=== PATIENT | female | born 1960 | race Caucasian/White ===

== ENCOUNTER → 2019-04-01 | Outpatient (CLI) | payer MEDICARE, MEDICAID ==
[2015-06-03 16:04] VITALS: BP 138/71
[~2019-04-01] MED LIST: AMOX1TAB58 PO; PRED20TA PO
--- NOTE | 2019-04-01 14:54 | RAD ---
EXAM: Right knee, 2 views. HISTORY: Arthritis. COMPARISON: None. FINDINGS: 2 views the right knee are obtained. There is no fracture, dislocation or subluxation. There is no significant joint effusion. IMPRESSION: No acute osseous finding. Electronically signed by: Saranya Childers MD (04/01/2019 2:51 PM) [facility]
--- NOTE | 2019-04-01 14:56 | RAD ---
EXAM: Bilateral hands, 3 views. HISTORY: Arthritis. COMPARISON: None. FINDINGS: 3 views of both hands are obtained. There is moderate bilateral first carpal metacarpal joint space narrowing, subchondral sclerosis and marginal osteophytosis. There is severe left greater than right third and moderate bilateral second distal interphalangeal joint space narrowing and spurring. There is moderate left fifth distal interphalangeal joint spurring with possible slight chronic subluxation. IMPRESSION: 1. Severe left greater than right third distal interphalangeal joint, moderate bilateral second distal interphalangeal joint, and moderate left fifth distal interphalangeal joint osteoarthritis. 2. Moderate bilateral first carpal metacarpal osteoarthritis. Electronically signed by: Saranya Childers MD (04/01/2019 2:53 PM) [place] [id number]
--- NOTE | 2019-04-01 15:22 | RAD ---
EXAM: Cervical spine, 3 views. HISTORY: Arthritis. COMPARISON: None. FINDINGS: 3 views of cervical spine are obtained. There is minimal anterolisthesis of C2 on C3 and C3 on C4. There is slight disc space narrowing at C5-C6. There is suspected bone demineralization. There is no acute fracture. There is a rounded peripherally calcified lesion within the left anterior neck measuring 1.6 cm, possibly associated with the left thyroid lobe. IMPRESSION: 1. Mild degenerative change primarily at C5-C6. 2. Suspected bone demineralization. 3. 1.8 cm peripherally calcified lesion within the left anterior neck. This may be associated with the thyroid and can be better assessed with a thyroid sonogram. Electronically signed by: Saranya Childers MD (04/01/2019 3:19 PM) [facility]
--- NOTE | 2019-04-01 15:29 | RAD ---
EXAM: Pelvis, single view; bilateral feet, 2 views; bilateral shoulders, 2 views. HISTORY: Arthritis. COMPARISON: None. FINDINGS: Pelvis: A frontal view the pelvis is obtained. There is no fracture, dislocation or subluxation. There is mild degenerative change involving the visualized lumbar spine. Bilateral feet: 2 views of both feet are obtained. There is no fracture, dislocation or subluxation. There is right talonavicular joint space narrowing, spurring and subchondral sclerosis. There is left first interphalangeal joint space narrowing and slight chronic subluxation. There are small right greater than left plantar spurs. There are suspected left hammertoe deformities. Bilateral shoulders: 3 views of both shoulders are obtained. There is mild bilateral humeral head spurring. There are degenerative subchondral cysts within the left glenoid. There are multiple left shoulder joint loose bodies. There has been distal left clavicular resection. IMPRESSION: 1. No acute osseous finding. 2. Moderate right talonavicular joint osteoarthritis left first interphalangeal joint osteoarthritis, the latter which is associated with slight subluxation. 3. Small bilateral plantar spurs. 4. Mild left greater than right glenohumeral osteoarthritis and minimal left shoulder joint loose bodies. There has been distal left clavicular resection. Electronically signed by: Saranya Childers MD (04/01/2019 3:26 PM) [facility]
== END | disposition home or self-care (01) ==
LOC: RAD 14:24
PROVIDERS: ATTEND Internal Medicine Rheumatology
DX: M19.042 Primary osteoarthritis, left hand (principal); M47.892 Other spondylosis, cervical region; M76.892 Other specified enthesopathies of left lower limb, excluding foot; M76.891 Other specified enthesopathies of right lower limb, excluding foot; M24.012 Loose body in left shoulder
CPT/HCPCS: 72040; 72170; 73030; 73120; 73560; 73620

== ENCOUNTER → 2019-11-18 | Outpatient (CLI) | payer MEDICARE, MEDICAID ==
[2015-06-03 16:04] VITALS: BP 138/71
[~2019-11-18] MED LIST changes: +ALBU2.5V8 IH; +CHOL500050 PO; +HYDR200T5 PO; +OMEP20TA8 PO; +OXYC10TA PO; +PRED2.5T PO; +UMEC1DIS IH
== END | disposition home or self-care (01) ==
LOC: LAB 11:30
PROVIDERS: ATTEND Registered Nurse
DX: Z11.59 Encounter for screening for other viral diseases (principal)
CPT/HCPCS: C9803; U0003

== ENCOUNTER → 2019-11-20 | Day surgery (SDC) | payer MEDICARE, MEDICAID ==
[~2019-11-20] MED LIST changes: +IV RINGERS SOLUTION,LACTATED 1,000 ML IV SCH; +PROPOFOL 10,000 MCG/ML (20ML) VIAL IV ONE
[2019-11-20 13:43] VITALS: BP 123/68
--- NOTE | 2019-11-24 17:06 | PATHOLOGY ---
[facility] Accession Number: [id number] . 01 Material submitted: . stomach - ANTRUM BIOPSY . 01 Clinical history: . None provided . 02 Diagnosis: Gastric biopsy, antrum: - Chronic gastritis, mild to moderate. ([facility] 11/24/2019) [facility] 11/24/2019 1121 Local . 02 Comment: Sections of the gastric antral biopsy show congestion and mild to moderate chronic inflammation. A properly controlled immunohistochemical for Helicobacter is negative for Helicobacter organisms. There is no evidence of malignancy. ([facility] 11/24/2019) . Special stain performed: Immunoperoxidase for Helicobacter organisms . 02 Electronically signed: . Osito Berkowitz MD, Pathologist NPI- [id number] . 01 Gross description: . The specimen is received in formalin, labeled "Mooberry, Reny, antrum BX" and consists of a fragment of nunez tissue measuring 0.6 x 0.3 cm which is entirely submitted in A1. ([facility]; 11/23/2019) [facility]U 11/23/2019 1754 Local . 02 Pathologist provided ICD-10: K29.50 . 02 CPT . 020781, [id number] Specimen Comment: A courtesy copy of this report has been sent to [phone] Specimen Comment: [phone], Specimen Comment: Report sent to ,DR VILLAFUERTE / DR SUAZO Performed at: 01 [facility] [address], [place] [id number] MD Jimi Lomeli MD Phone: [phone] Performed at: 02 [facility] [address], [place] [id number] MD Osito Berkowitz MD Phone: [phone]
== END | disposition home or self-care (01) ==
LOC: SURG 10:38
PROVIDERS: ATTEND Internal Medicine Gastroenterology
DX: R10.13 Epigastric pain (principal); K29.50 Unspecified chronic gastritis without bleeding; K21.0 Gastro-esophageal reflux disease with esophagitis; K22.2 Esophageal obstruction; K44.9 Diaphragmatic hernia without obstruction or gangrene; E66.9 Obesity, unspecified; J44.9 Chronic obstructive pulmonary disease, unspecified; G47.33 Obstructive sleep apnea (adult) (pediatric); K92.0 Hematemesis; M19.90 Unspecified osteoarthritis, unspecified site; Z79.899 Other long term (current) drug therapy; Z98.890 Other specified postprocedural states; Z88.0 Allergy status to penicillin; Z88.8 Allergy status to other drugs, medicaments and biological substances; Z68.41 Body mass index [BMI] 40.0-44.9, adult; Z90.710 Acquired absence of both cervix and uterus; Z91.041 Radiographic dye allergy status
CPT/HCPCS: 43239; 88305; 88342; J2704; J7120; U0003-CS

== ENCOUNTER 2021-09-15 23:04 | Inpatient (IN) | payer MEDICARE, MEDICAID ==
[~2021-09-15] VITALS: Ht 157.5 cm; Wt 115.8 kg
[~2021-09-15 23:04] MED LIST changes: -IV RINGERS SOLUTION,LACTATED 1,000 ML IV SCH; -PROPOFOL 10,000 MCG/ML (20ML) VIAL IV ONE
[2021-09-15] MEDS ORDERED: IPRATRPIUM/ALBUTEROL 0.5/2.5MG 3 ML NEBU. ONE ×2 (23:13→23:17)
[2021-09-15] MEDS ORDERED: methylPREDNISolone SOD SUCC PF 125 MG/2 ML VIAL. IV ONE (23:30)
[2021-09-15] MEDS ORDERED: IPRATRPIUM/ALBUTEROL 0.5/2.5MG 3 ML NEBU. NEB ONE (23:30)
--- NOTE | 2021-09-15 23:36 | PHYS DOC ---
Past History Past Medical History: Bronchitis, Lung Disease, Other Additional Past Medical Histor: RA, ULCERS Past Surgical History: Cholecystectomy, Hysterectomy, Knee Replacement, Other Additional Past Surgical Histo: BX CARPAL TUNNEL, L KNEE, L SHOULDER, RENAL ANGIOPLASTY Alcohol Use: None Drug Use: None General Adult EDM: Chief Complaint: SHORTNESS OF BREATH HPI: HPI: 61-year-old female presents with shortness of breath and chest discomfort. The patient has been having the symptoms for least a week. She has been feeling more short of breath the last few days. She has a history of asthma borderline COPD. She is a smoker. The chest pain she describes as a burning/pulling sensation. She assumes this is related to her acid reflux disease for which she takes omeprazole and famotidine. She has decreased exercise tolerance. No formal diagnosis of COPD. She does use Anoro and Ventolin. She denies fever or chills. She had COVID-19 in June of this year. Review of Systems: Review of Systems: Constitutional: Denies fever or chills Eyes: Denies change in visual acuity HENT: Denies nasal congestion or sore throat Respiratory: shortness of breath Cardiovascular: Chest pain GI: Denies abdominal pain, nausea, vomiting, bloody stools or diarrhea : Denies dysuria Musculoskeletal: Denies back pain or joint pain Integument: Denies rash Neurologic: Denies headache, focal weakness or sensory changes Endocrine: Denies polyuria or polydipsia Lymphatic: Denies swollen glands Psychiatric: Denies depression or anxiety Current Medications: Current Meds: Current Medications Medications (Trade) Dose Ordered Sig/Wilmer Start Time Stop Time Status Last Admin Dose Admin Albuterol/ Ipratropium (Duoneb) 3 ml 1X ONCE 09/15/21 23:30 09/15/21 23:31 UNV Methylprednisolone Sodium Succinate (SOLU-Medrol 125MG VIAL) 125 mg 1X ONCE 09/15/21 23:30 09/15/21 23:31 UNV Allergies: Allergies: Allergies Coded Allergies Type Severity Reaction Last Updated Verified ceftriaxone Allergy Severe Shortness of Air 06/03/15 Yes iodine Allergy Severe Shortness of Air 06/03/15 Yes methotrexate Allergy Severe Shortness of Air 06/03/15 Yes adhesive tape Allergy Unknown PLASTIC TAPE 11/20/19 Yes Uncoded Allergies Type Severity Reaction Last Updated Verified MOST RA DRUGS Allergy Severe Shortness of Air 06/03/15 Physical Exam: PE: Constitutional: Well developed, well nourished, morbidly obese, no acute distres s, non-toxic appearance. [] HENT: Normocephalic, atraumatic, bilateral external ears normal, oropharynx [address], no oral exudates, nose normal. [] Eyes: PERRLA, EOMI, conjunctiva normal, no discharge. [] Neck: Normal range of motion, no tenderness, supple, no stridor. [] Cardiovascular: Heart rate 77, regular rhythm, no murmur [] Lungs & Thorax: Bilateral breath sounds with diffuse expiratory wheezing [] Abdomen: Bowel sounds normal, soft, no tenderness, no masses, no pulsatile masses. [] Skin: Warm, dry, no erythema, no rash. [] Back: No tenderness, no CVA tenderness. [] Extremities: No tenderness, no cyanosis, no clubbing, ROM intact, no edema. [] Neurologic: Alert and oriented X 3, normal motor function, normal sensory function, no focal deficits noted. [] Psychologic: Affect normal, judgement normal, mood normal. [] Current Patient Data: Vital Signs: Vital Signs Date Time Temp Pulse Resp B/P (MAP) Pulse Ox O2 Delivery O2 Flow Rate FiO2 09/15/21 23:24 94 Room Air 09/15/21 23:22 98.4 92 24 153/106 (122) EKG: EKG: Sinus rhythm, rate 77, leftward axis, no ST elevation or depression. [] Radiology/Procedures: Radiology/Procedures: [] Impressions: Exam Date: 09/15/2021 11:23 PM XR CHEST 1V Indication: Reason: SOB / Spl. Instructions: / History: . FINDINGS/ IMPRESSION: The cardiac silhouette and pulmonary vasculature are within normal limits. There is no focal consolidation, pleural effusion or pneumothorax. The visualized osseous structures are intact. Electronically signed by: Murtaza Sharma MD (09/16/2021 12:09 AM) [facility] DICTATED AND SIGNED BY: MURTAZA SHARMA MD DATE: 09/16/21 0008 CC: RIANA VIRGEN DO; FATMATA VILLAFUERTE ~ Heart Score: C/O Chest Pain: Yes HEART Score for Chest Pain: HEART Score for Chest Pain Response (Comments) Value History Slighlty/Non-Suspicious 0 ECG Nonspecific Repolarizatio 1 Age >45 - < 65 1 Risk Factors 1 or 2 Risk Factors 1 Troponin < Normal Limit 0 Total 3 Risk Factors: Risk Factors: DM, Current or recent (<one month) smoker, HTN, HLP, family history of CAD, obesity. Risk Scores: Score 0 - 3: 2.5% MACE over next 6 weeks - Discharge Home Score 4 - 6: 20.3% MACE over next 6 weeks - Admit for Clinical Observation Score 7 - 10: 72.7% MACE over next 6 weeks - Early Invasive Strategies Course & Med Decision Making: Course & Med Decision Making Pertinent Labs and Imaging studies reviewed. (See chart for details) Patient appears to be having a COPD exacerbation. I have treated her with DuoNeb treatments we will give her 125 Solu-Medrol. Patient's chest x-ray is negative for acute findings. EKG is negative for acute findings. Labs are unremarkable. Troponin is negative. The patient's oxygen saturation has not been consistently staying above 90%. Just talking she drops to 88. I have advised that the patient be admitted to the hospital. She has reluctantly agreed. I spoke with Dr. Turner and he has accepted the patient for admission. Dragon Disclaimer: Sherry Disclaimer: This electronic medical record was generated, in whole or in part, using a voice recognition dictation system. Departure Departure: Impression: Primary Impression: COPD exacerbation Disposition: ADMITTED INPATIENT Admitting Physician: John Turner Condition: STABLE Referrals: FATMATA VILLAFUERTE (PCP) RIANA VIRGEN DO Sep 15, 2021 23:36
[2021-09-15 23:49] LABS: BASO % 0 % (0-3); EOS # 0.2 x10^3/uL (0.0-0.7); EOS % 3 % (0-3); HEMATOCRIT 43.2 % (36.0-47.0); HEMOGLOBIN 14.4 g/dL (12.0-15.5); LYMPH # 2.2 x10^3/uL (1.0-4.8); LYMPH % 23 % (24-48); MEAN CORPUSCULAR HEMOGLOBIN 29 pg (25-35); MEAN CORPUSCULAR HGB CONC 33 g/dL (31-37); MEAN CORPUSCULAR VOLUME 88 fL (79-100); MONO # 0.9 x10^3/uL (0.0-1.1); MONO % 10 % (0-9); NEUT # 6.2 x10^3uL (1.8-7.7); NEUT % 65 % (31-73); PLATELET COUNT 269 x10^3/uL (140-400); RED BLOOD COUNT 4.91 x10^6/uL (3.50-5.40); RED CELL DISTRIBUTION WIDTH 15.1 % (11.5-14.5); WHITE BLOOD COUNT 9.5 x10^3/uL (4.0-11.0)
--- NOTE | 2021-09-15 23:49 | EKG ---
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
[2021-09-16 00:04] LABS: CALCIUM 8.9 mg/dL (8.5-10.1); CREATININE 1.2 mg/dL (0.6-1.0); GFR 45.4; POTASSIUM 4.2 mmol/L (3.5-5.1)
--- NOTE | 2021-09-16 00:11 | RAD ---
Exam Date: 09/15/2021 11:23 PM XR CHEST 1V Indication: Reason: SOB / Spl. Instructions: / History: . FINDINGS/ IMPRESSION: The cardiac silhouette and pulmonary vasculature are within normal limits. There is no focal consolidation, pleural effusion or pneumothorax. The visualized osseous structures are intact. Electronically signed by: Karthikeyan Sharma MD (09/16/2021 12:09 AM) [facility]
[2021-09-16 00:16] LABS: ALBUMIN 3.9 g/dL (3.4-5.0); ALBUMIN/GLOBULIN RATIO 1.3 (1.0-1.7); TOTAL BILIRUBIN 0.3 mg/dL (0.2-1.0)
[2021-09-16] MEDS ORDERED: ONDANSETRON PF 4 MG/2 ML VIAL. IVP PRN (00:45)
[2021-09-16 01:27] LABS: INFLUENZA A PATIENT NEGATIVE (NEGATIVE); INFLUENZA B PATIENT NEGATIVE (NEGATIVE)
[2021-09-16 02:50] VITALS: BP 132/80
[2021-09-16] MEDS ORDERED: FAMO40TA4 PO (03:16)
[2021-09-16] MEDS ORDERED: IPRATRPIUM/ALBUTEROL 0.5/2.5MG 3 ML NEBU. ONE (04:02)
[2021-09-16] MEDS: FAMOTIDINE 20 MG TABLET PO SCH ×2 (04:03→21:34)
[2021-09-16] MEDS ORDERED: ALBUTEROL SULFATE 2.5 MG/3 ML NEBU. IH PRN (05:30)
[2021-09-16] MEDS: IPRATRPIUM/ALBUTEROL 0.5/2.5MG 3 ML NEBU. NEB SCH ×4 (05:53→20:56)
[2021-09-16] MEDS: methylPREDNISolone SOD SUCC PF 40 MG/ML VIAL. IV SCH ×3 (07:19→21:33)
[2021-09-16] MEDS ORDERED: IPRATRPIUM/ALBUTEROL 0.5/2.5MG 3 ML NEBU. NEB SCH (08:00)
[2021-09-16] MEDS ORDERED: PREDNISONE 7.5 MG PO SCH (09:00)
[2021-09-16] MEDS: HYDROXYCHLOROQUINE 200 MG TABLET PO SCH ×3 (10:27→21:33)
[2021-09-16] MEDS: CHOLECALCIFEROL (VITAMIN D3) 1,000 UNIT TABLET PO SCH (10:27)
[2021-09-16] MEDS: oxyCODONE IR 5 MG TABLET PO PRN ×2 (10:27→18:37)
[2021-09-16 11:25] VITALS: BP 125/79
[2021-09-16] MEDS: PANTOPRAZOLE 40 MG TABLET. PO SCH (11:30)
--- NOTE | 2021-09-16 15:50 | HP ---
DATE OF SERVICE: 09/16/2021 ADMIT DATE: 09/16/2021 HISTORY OF PRESENT ILLNESS: The patient is a 61-year-old female patient who presented to the Emergency Room of [facility] with a complaint of worsening shortness of breath, chest discomfort. She is having had the symptoms for at least a week now. She has been feeling more short of breath for the last few days. She apparently is known to have bronchial asthma and borderline COPD. She unfortunately continues to smoke and she is also known to have morbid obesity and obstructive sleep apnea, for which she was supposed to be on CPAP, but she has not been using it and has been sleeping in her recliner. She also had severe acid reflux and hiatal hernia. She did complain of burning sensation and pain in her epigastric area that makes her feeling of sensation of shortness of breath worse. She, however, denied any fever, chills. Denied any chest pain. She has had COVID-19 in June of this year and she was extensively investigated in the Emergency Room and has had lab work and imaging studies. Her lab work showed a white cell count to be normal. Her chemistry was mostly unrevealing. Her influenza A and B were negative; however, her SARS-CoV-2 antigen rapid testing was positive. Her chest x-ray showed the cardiac silhouette and pulmonary vasculature are within normal limits. There is no focal consolidation, pleural effusion or pneumothorax. The visualized osseous structures are intact. The patient was admitted with acute COPD exacerbation. She was started on IV steroids. She did receive methylprednisolone 125 mg, received multiple treatments with albuterol and Atrovent and was continued on most of her home medication. PAST MEDICAL HISTORY: Significant for severe gastroesophageal reflux disease, hiatal hernia, multiple gastric ulcers, morbid obesity, obstructive sleep apnea, COPD, bronchial asthma, rheumatoid arthritis, ____. Has had COVID-19 in June of this year. PAST SURGICAL HISTORY: Significant for cholecystectomy, esophagogastrojejunostomy, left total knee arthroplasty, total abdominal hysterectomy, carpal tunnel release on both sides. 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 Does have also Schatzki rings dilated. ALLERGIES: SHE IS ALLERGIC TO MOST RHEUMATOID ARTHRITIS DRUGS, ADHESIVE TAPE, CEFTRIAXONE, IODINE AND METHOTREXATE. MEDICATIONS: She is currently on the following medications: She is on hydroxychloroquine sulfate 200 mg twice a day, Anoro Ellipta one inhalation once a day, albuterol sulfate 1 puff every 4 hours, oxycodone 10 mg extended release three times a day, famotidine 40 mg at bedtime, omeprazole 20 mg twice a day, prednisone 7.5 mg daily and cholecalciferol 1250 mcg once a week. FAMILY HISTORY: She has 2 brothers who are healthy. One sister of Deandra's granulomatosis and colon cancer. She has 5 other sisters who are healthy. SOCIAL HISTORY: She is , has a son and a daughter. She continued to smoke about a pack a day, does not drink alcohol or use any recreational drugs. 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 REVIEW OF SYSTEMS: As per history of present illness. PHYSICAL EXAMINATION: GENERAL: On arrival to the Emergency Room, the patient was somewhat tachypneic, but there is no pallor or jaundiced, cyanosed or thyromegaly. No jugular venous distention. No lower limb edema. VITAL SIGNS: Her heart rate was 93, blood pressure 153/106, temperature was 98.4, respiratory rate was 24 and oxygen saturation was 93% on room air. HEAD, EYES, EARS, NOSE, AND THROAT: Normocephalic, atraumatic. NECK: Supple. HEART: Normal first and second heart sounds. No gallop or murmur. CHEST: Shows central trachea, equally reduced expansion, reduced air entry, vesicular breath sounds with bilateral scattered rhonchi. I could not appreciate any crepitation. ABDOMEN: Distended, soft, nontender. NEUROLOGIC: She was grossly intact. She does have some hoarseness of voice, thought to be due to vocal cord dysfunction that she attributes to intubation for her cholecystectomy. LABORATORY WORK: On arrival to the Emergency Room showed a white cell count of 9.5, hemoglobin 14.4, hematocrit 43, MCV 88 and platelet count 269,000 with normal manual differential. Her chemistry showed a serum sodium 138, potassium 4.2, chloride 99, bicarbonate 33, anion gap of 6, BUN 11, creatinine 1.2. Estimated GFR was 45 mL per minute. Her glucose 110, calcium was 8.9. Total bilirubin, AST, ALT, alkaline phosphatase were normal. Troponin I high sensitivity was 6. Beta natriuretic peptide was 63. Total protein was 7, albumin was 3.9. Her influenza A and B were negative. Her SARS-CoV-2 antigen rapid testing was positive. Her chest x-ray showed that the patient's cardiac silhouette and pulmonary vasculature are within normal limits. There is no focal consolidation, pleural effusion or pneumothorax. The visualized osseous structures are intact. ASSESSMENT AND PLAN: In summary, this is a 61-year-old female patient who was admitted with COPD exacerbation/bronchial asthma exacerbation. She has multiple other medical problems including severe acid reflux, hiatal hernia, multiple gastric ulcers. She has also rheumatoid arthritis and has had morbid obesity and obstructive sleep apnea. She was supposed to be on CPAP, but she is not using it since last June. My plan is to continue reconcile all her medication, added nebulized albuterol and Atrovent and also methylprednisolone 40 mg 4 times a day. We will continue with her famotidine and omeprazole and monitor her on a daily basis. PAIGE/ADILIA/BRANDO DR: Arden TID: [id number]
[2021-09-16 16:00] VITALS: BP 127/61
[2021-09-16 21:45] VITALS: BP 126/74
[2021-09-17 00:23] VITALS: BP 137/86
[2021-09-17] MEDS: oxyCODONE IR 5 MG TABLET PO PRN ×4 (00:25→20:42)
[2021-09-17 04:23] VITALS: BP 131/81
[2021-09-17] MEDS: IPRATRPIUM/ALBUTEROL 0.5/2.5MG 3 ML NEBU. NEB SCH ×4 (05:39→21:25)
[2021-09-17] MEDS: methylPREDNISolone SOD SUCC PF 40 MG/ML VIAL. IV SCH ×3 (05:44→21:25)
[2021-09-17] MEDS: PANTOPRAZOLE 40 MG TABLET. PO SCH (07:30)
[2021-09-17 07:36] LABS: BASO % 0 % (0-3); EOS % 0 % (0-3); HEMATOCRIT 38.4 % (36.0-47.0); HEMOGLOBIN 12.8 g/dL (12.0-15.5); LYMPH # 0.8 x10^3/uL (1.0-4.8); LYMPH % 6 % (24-48); MEAN CORPUSCULAR HEMOGLOBIN 30 pg (25-35); MEAN CORPUSCULAR HGB CONC 33 g/dL (31-37); MEAN CORPUSCULAR VOLUME 89 fL (79-100); MONO # 0.7 x10^3/uL (0.0-1.1); MONO % 5 % (0-9); NEUT # 13.4 x10^3uL (1.8-7.7); NEUT % 89 % (31-73); PLATELET COUNT 225 x10^3/uL (140-400); RED BLOOD COUNT 4.33 x10^6/uL (3.50-5.40); RED CELL DISTRIBUTION WIDTH 14.9 % (11.5-14.5)
[2021-09-17] MEDS: CHOLECALCIFEROL (VITAMIN D3) 1,000 UNIT TABLET PO SCH (07:37)
[2021-09-17 07:51] LABS: ALBUMIN 3.4 g/dL (3.4-5.0); CALCIUM 8.8 mg/dL (8.5-10.1); CREATININE 0.9 mg/dL (0.6-1.0); GFR 63.2; TOTAL BILIRUBIN 0.2 mg/dL (0.2-1.0); TOTAL PROTEIN 6.8 g/dL (6.4-8.2)
[2021-09-17] MEDS: HYDROXYCHLOROQUINE 200 MG TABLET PO SCH ×2 (08:19→20:40)
[2021-09-17 11:00] VITALS: BP 125/62
[2021-09-17] MEDS ORDERED: NICOTINE POLACRILEX GUM 2 MG GUM. BC PRN (19:00)
[2021-09-17] MEDS: ASA/APAP/CAFFEINE 250/250/65MG TABLET. PO PRN (19:15)
--- NOTE | 2021-09-17 19:30 | PN ---
DATE: 09/17/2021 SUBJECTIVE: The patient is resting, slightly propped up in bed, in no apparent respiratory distress. She continued to have cough that is dry hacking. She has also some chest tightness and wheezing, although much better than yesterday. PHYSICAL EXAMINATION: GENERAL: When I examined her today, she looked well and was clearly in no apparent distress. No pallor, jaundice, cyanosis or thyromegaly. No jugular venous distention. No limb edema. VITAL SIGNS: Her heart rate was 86, blood pressure is 131/81, temperature 98.2, respiratory rate was 18 and oxygen saturation was 97% on room air. HEAD, EYES, EARS, NOSE, AND THROAT: Normocephalic, atraumatic. NECK: Supple. HEART: Showed normal first and second heart sounds. No gallop or murmur. CHEST: Showed central trachea, equally reduced expansion, reduced air entry, vesicular breath sounds with bilateral scattered wheeze and rhonchi. I could not appreciate any crepitation. ABDOMEN: Distended, soft, nontender. NEUROLOGIC: She was grossly intact. Her intake and output were incompletely recorded. LABORATORY DATA: Her lab work this morning showed a white cell count of 15,000, hemoglobin 13, hematocrit 38, MCV 89 and platelet count 225,000. Her serum sodium was 136, potassium 4, chloride 99, bicarbonate 31, anion gap of 6, BUN 13, creatinine 0.9. Estimated GFR was 63 mL per minute. Her glucose was 144, calcium was 8.8. Total bilirubin, AST, ALT, alkaline phosphatase were normal. Total protein 6.8, albumin was 3.4. ASSESSMENT: 1. Acute hypoxic respiratory failure. 2. Chronic obstructive pulmonary disease exacerbation versus bronchial asthma exacerbation. 3. Severe acid reflux. 4. Hiatal hernia. 5. Multiple gastric ulcers. 6. Rheumatoid arthritis. 7. Morbid obesity and obstructive sleep apnea. PLAN: To continue with all her medications. Continue with steroids. Continue with her H2 blockers as well as proton-pump inhibitors. We will evaluate her again tomorrow and if she remains stable, she can be discharged home. MARCO ANTONIO DR: Arden TID: [id number]
[2021-09-17 19:44] VITALS: BP 119/57
[2021-09-17] MEDS ORDERED: SODIUM CHLORIDE 0.65% NASAL SPRAY 45ML BOTTLE. NS PRN (20:00)
[2021-09-17] MEDS: FAMOTIDINE 20 MG TABLET PO SCH (20:39)
[2021-09-17 22:40] VITALS: BP 151/77
[2021-09-18] MEDS: IPRATRPIUM/ALBUTEROL 0.5/2.5MG 3 ML NEBU. NEB SCH ×3 (05:29→16:00)
[2021-09-18] MEDS: methylPREDNISolone SOD SUCC PF 40 MG/ML VIAL. IV SCH ×2 (05:38→14:20)
[2021-09-18 05:47] VITALS: BP 144/85
[2021-09-18] MEDS: PANTOPRAZOLE 40 MG TABLET. PO SCH (07:30)
[2021-09-18] MEDS: CHOLECALCIFEROL (VITAMIN D3) 1,000 UNIT TABLET PO SCH (08:07)
[2021-09-18] MEDS ORDERED: HYDROXYCHLOROQUINE 200 MG TABLET PO SCH (09:00)
[2021-09-18 09:24] LABS: BASO # 0.1 x10^3/uL (0.0-0.2); BASO % 1 % (0-3); EOS % 0 % (0-3); HEMATOCRIT 39.9 % (36.0-47.0); HEMOGLOBIN 13.3 g/dL (12.0-15.5); LYMPH # 0.5 x10^3/uL (1.0-4.8); LYMPH % 4 % (24-48); MEAN CORPUSCULAR HEMOGLOBIN 29 pg (25-35); MEAN CORPUSCULAR HGB CONC 33 g/dL (31-37); MEAN CORPUSCULAR VOLUME 88 fL (79-100); MONO # 0.5 x10^3/uL (0.0-1.1); MONO % 4 % (0-9); NEUT # 12.1 x10^3uL (1.8-7.7); NEUT % 92 % (31-73); PLATELET COUNT 245 x10^3/uL (140-400); RED BLOOD COUNT 4.51 x10^6/uL (3.50-5.40); RED CELL DISTRIBUTION WIDTH 14.8 % (11.5-14.5); WHITE BLOOD COUNT 13.2 x10^3/uL (4.0-11.0)
[2021-09-18 09:38] LABS: ALBUMIN 3.6 g/dL (3.4-5.0); ALBUMIN/GLOBULIN RATIO 1.2 (1.0-1.7); CALCIUM 8.9 mg/dL (8.5-10.1); CREATININE 0.8 mg/dL (0.6-1.0); GFR 72.4; POTASSIUM 4.2 mmol/L (3.5-5.1); TOTAL BILIRUBIN 0.3 mg/dL (0.2-1.0); TOTAL PROTEIN 6.6 g/dL (6.4-8.2)
[2021-09-18] MEDS: ASA/APAP/CAFFEINE 250/250/65MG TABLET. PO PRN (09:50)
[2021-09-18] MEDS: oxyCODONE IR 5 MG TABLET PO PRN (10:07)
[2021-09-18 12:21] VITALS: BP 148/73
[2021-09-18 15:00] VITALS: BP 132/72
--- NOTE | 2021-09-18 20:34 | DS ---
DATE OF DISCHARGE: 09/18/2021 HOSPITAL COURSE: The patient is sitting on the edge of the bed comfortably, in no apparent distress. She had no more cough or shortness of breath, no chest tightness or wheezing. PHYSICAL EXAMINATION: GENERAL: When I examined her today, she looked well and was clearly in no apparent respiratory distress. No pallor, jaundice, cyanosis or thyromegaly. No jugular venous distention. No limb edema. VITAL SIGNS: Her heart rate was 75, blood pressure was 148/73, temperature was 98.2, respiratory rate was 18 and oxygen saturation was 96% on room air. HEAD, EYES, EARS, NOSE AND THROAT: Normocephalic, atraumatic. NECK: Supple. HEART: Normal first and second heart sounds. No gallop or murmur. CHEST: Clear to auscultation, no crepitation or rhonchi. ABDOMEN: Distended, soft, nontender. NEUROLOGIC: She was grossly intact. Her intake was 830. No output was recorded. LABORATORY DATA: Her lab work showed a white cell count of 13,200, hemoglobin 13, hematocrit 39, MCV 88 and platelet count of 245,000. Her chemistry this morning showed a serum sodium of 138, potassium 4.2, chloride 101, bicarbonate 29, anion gap of 8, BUN 16, creatinine 0.8. Estimated GFR was 72 mL per minute. Her glucose 150, calcium was 8.9. Total bilirubin, AST, ALT, alkaline phosphatase were normal. Total protein 6.6, albumin was 3.6. Her coronavirus by rapid testing was positive; however, influenza A and B were negative. DISCHARGE MEDICATIONS: The patient was discharged home to continue on albuterol sulfate 1 puff every 4 hours as needed, cholecalciferol for vitamin D3 1250 mcg once a week, famotidine 40 mg at bedtime, hydroxychloroquine sulfate 200 mg once a day, omeprazole 20 mg twice a day, oxycodone extended release 10 mg 3 times a day as needed, prednisone 7.5 mg daily and Anoro Ellipta 1 puff once a day. She was also discharged on a tapering course of steroid in the form of 40 mg once a day for 3 days, 30 mg once a day for 3 days, 20 mg once a day for 3 days and 10 mg once a day for 3 days. Eventually, she will go down to prednisone 7.5 mg once a day. FINAL DISCHARGE DIAGNOSES: 1. Acute hypoxic respiratory failure, resolved. 2. Chronic obstructive pulmonary disease exacerbation, resolved. 3. Severe acid reflux. 4. Hiatal hernia. 5. Multiple gastric ulcers. 6. Rheumatoid arthritis. 7. Morbid obesity and obstructive sleep apnea. MARCO ANTONIO DR: Arden TID: [id number]
== END 2021-09-18 16:38 | disposition home or self-care (01) | DRG 189 ==
LOC: ER 23:04 → 1 SOUTH 09-16 01:44
PROVIDERS: ADMIT Internal Medicine; ATTEND Internal Medicine
DX: J96.01 Acute respiratory failure with hypoxia (principal); U07.1 COVID-19; J45.901 Unspecified asthma with (acute) exacerbation; Z68.42 Body mass index [BMI] 45.0-49.9, adult; J44.1 Chronic obstructive pulmonary disease with (acute) exacerbation; K21.9 Gastro-esophageal reflux disease without esophagitis; K44.9 Diaphragmatic hernia without obstruction or gangrene; M06.9 Rheumatoid arthritis, unspecified; Z96.652 Presence of left artificial knee joint; F17.210 Nicotine dependence, cigarettes, uncomplicated; K25.9 Gastric ulcer, unspecified as acute or chronic, without hemorrhage or perforation; E66.01 Morbid (severe) obesity due to excess calories; G47.33 Obstructive sleep apnea (adult) (pediatric); Z86.16 Personal history of COVID-19; Z87.11 Personal history of peptic ulcer disease; Z90.49 Acquired absence of other specified parts of digestive tract; Z90.710 Acquired absence of both cervix and uterus; Z98.62 Peripheral vascular angioplasty status; Z88.1 Allergy status to other antibiotic agents; Z91.041 Radiographic dye allergy status; Z88.8 Allergy status to other drugs, medicaments and biological substances; Z91.048 Other nonmedicinal substance allergy status; Z80.0 Family history of malignant neoplasm of digestive organs; Z82.69 Family history of other diseases of the musculoskeletal system and connective tissue
CPT/HCPCS: 36415; 71045; 80053; 83880; 84484; 85025; 87428; 93005; 94640; 96374; J2405; J2920; J2930; 99285-25